=== PATIENT | male | born 1950 | race Caucasian/White ===

== ENCOUNTER 2019-05-18 10:46 | Emergency (ER) | payer SELFPAY ==
[~2019-05-18] VITALS: Ht 167.6 cm; Wt 65.8 kg
--- NOTE | 2019-05-18 11:20 | NUR ---
Dr Guerrero at the bedside for MSE.
--- NOTE | 2019-05-18 12:49 | NUR ---
Danielle salvador in [facility] - 05/18/19 at 1256 by JUAN RAMON Call placed to [facility], Caesar Yancey has been paged.
--- NOTE | 2019-05-18 12:56 | NUR ---
Patient discharged to home in stable conditon. Written and verbal after care instructions given. Patient verbalizes understanding of instructions.
== END 2019-05-18 12:57 | disposition home or self-care (01) ==
LOC: ER 10:46
DX: M23.92 Unspecified internal derangement of left knee (principal)
CPT/HCPCS: 73700; A4663